=== PATIENT | female | born 2000 | race Caucasian/White ===

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

== ENCOUNTER 2021-07-01 11:07 | Observation (INO) ==
[2021-07-01] MEDS ORDERED: SODIUM CHLORIDE 0.9% 1,000 ML IV STA (12:14)
[2021-07-01] MEDS ORDERED: PROMETHAZINE 25 MG/1 ML VIAL IM STA (12:15)
[2021-07-01 12:44] LABS: Alanine Aminotransferase 28 U/L (13-56); Albumin 3.5 G/DL (3.4-5.0); Alkaline Phosphatase 98 U/L (45-117); Aspartate Amino Transferase 18 U/L (0-37); Bilirubin,Total < 0.39 MG/DL (0.20-1.00); Blood Urea Nitrogen 5 MG/DL (7-18); Calcium 9.6 MG/DL (8.5-10.1); Carbon Dioxide 20 MMOL/L (21-32); Estimated Glom Filtration Rate 138 ML/MIN; Glucose 92 MG/DL (74-106); Osmolality,Calculated 266.1 MOS/KG (273-304); Potassium 3.7 MMOL/L (3.5-5.1); Sodium 135 MMOL/L (136-145); Total Protein 7.8 G/DL (6.4-8.2)
[2021-07-01 12:58] LABS: Bilirubin,Urine Negative (Negative); Blood, Urine Negative (Negative); Glucose,Urine (UA) Negative (Negative); Ketones,Urine 80 mg/dL (Negative); Mucus,Urine Many /LPF (Occasional); Nitrite,Urine Negative (Negative); Protein,Urine 100 MG/DL; RBC,Urine 2 /HPF (0-4); Squamous Epithelial Cell,Urine Occasional /HPF (0-10); Urine Appearance CLEAR (Clear); Urine Color Amber (Yellow)
[2021-07-01] MEDS ORDERED: LACTATED RINGERS 250 ML IV ONE (16:27)
[2021-07-01] MEDS ORDERED: PROMETHAZINE 25 MG/1 ML VIAL IM PRN (16:27)
[2021-07-01] MEDS ORDERED: LACTATED RINGERS 500 ML IV PRN (16:27)
[2021-07-01] MEDS ORDERED: LACTATED RINGERS 1,000 ML IV SCH (16:27)
[2021-07-01] MEDS ORDERED: SCOPOLAMINE 1.5 MG PATCH TRANSDERM SCH (16:45)
[2021-07-01] MEDS ORDERED: ALUMINUM/MAGNES/SIMETH MAX STR 30 ML UDCUP PO PRN (17:29)
[2021-07-01] MEDS: LACTATED RINGERS 1,000 ML IV SCH (23:04)
[2021-07-02 05:37] LABS: Basophils % 0.6 % (0.0-0.8); Eosinophils # 0.1 10*3/uL (0.0-0.87); Eosinophils % 0.8 % (0.00-10.9); Hematocrit 34.7 VOL% (35.7-47.0); Hemoglobin 11.9 GM/DL (12.0-16.0); Immature Granulocytes % 0.2 %; Immature Granulocytes Absolute 0.01 #; Lymphocytes # 1.6 10*3/uL (1.4-4.0); Lymphocytes % 25.4 % (21.3-54.2); Mean Corpuscular HGB Conc 34.3 GM/DL (32-36); Mean Corpuscular Volume 87.6 FL (87-102); Mean Platelet Volume 10.4 FL (9.6-12.0); Monocytes % 8.2 % (1.7-12.7); Neutrophils % 64.8 % (38.7-73.9); Platelet Count 202 T/CUMM (130-400); Red Blood Count 3.96 MC/CUMM (3.8-5.5); Red Cell Distribution Width 12.4 % (9.3-17.3); White Blood Count 6.4 T/CUMM (4-12)
[2021-07-02] MEDS: ONDANSETRON 4 MG/2 ML VIAL IV PRN ×3 (05:53→20:38)
[2021-07-02 06:07] LABS: Albumin 2.5 G/DL (3.4-5.0); Bilirubin,Total 0.4 MG/DL (0.20-1.00); Calcium 8.4 MG/DL (8.5-10.1); Osmolality,Calculated 268.8 MOS/KG (273-304); Potassium 3.5 MMOL/L (3.5-5.1); Total Protein 5.9 G/DL (6.4-8.2)
[2021-07-02] MEDS: LACTATED RINGERS 1,000 ML IV SCH ×3 (07:22→23:31)
[2021-07-03] MEDS: LACTATED RINGERS 1,000 ML IV SCH (07:58)
[2021-07-03 08:07] VITALS: BP 101/54
== END 2021-07-03 10:55 | disposition home or self-care (01) ==
LOC: N.EDINP 11:07 → N.ED 11:07 → N.EDINP 16:10 → N.OB 16:15
PROVIDERS: ADMIT Obstetrics & Gynecology; ATTEND Obstetrics & Gynecology

== ENCOUNTER 2021-07-31 10:07 | Inpatient (IN) ==
[2021-07-31] MEDS ORDERED: LACTATED RINGERS 1,000 ML IV ONE (10:45)
[2021-07-31] MEDS: ALUMINUM/MAGNES/SIMETH MAX STR 30 ML UDCUP PO PRN ×2 (11:29→15:38)
[2021-07-31] MEDS: PROMETHAZINE 25 MG/1 ML VIAL IM PRN ×2 (11:29→19:32)
[2021-07-31 11:44] LABS: Basophils % 0.3 % (0.0-0.8); Hematocrit 43.3 VOL% (35.7-47.0); Hemoglobin 14.7 GM/DL (12.0-16.0); Immature Granulocytes % 0.5 %; Immature Granulocytes Absolute 0.05 #; Lymphocytes # 1.4 10*3/uL (1.4-4.0); Lymphocytes % 13.6 % (21.3-54.2); Mean Corpuscular HGB Conc 33.9 GM/DL (32-36); Mean Corpuscular Volume 86.4 FL (87-102); Mean Platelet Volume 10.8 FL (9.6-12.0); Monocytes % 8.2 % (1.7-12.7); Neutrophils % 77.4 % (38.7-73.9); Platelet Count 310 T/CUMM (130-400); Red Blood Count 5.01 MC/CUMM (3.8-5.5); Red Cell Distribution Width 12.4 % (9.3-17.3); White Blood Count 10.1 T/CUMM (4-12)
[2021-07-31 12:08] LABS: Albumin 3.3 G/DL (3.4-5.0); Bilirubin,Total 0.7 MG/DL (0.20-1.00); Calcium 9.6 MG/DL (8.5-10.1); Potassium 3.1 MMOL/L (3.5-5.1); Total Protein 7.6 G/DL (6.4-8.2)
[2021-07-31 13:54] LABS: Bacteria,Urine Occasional /HPF (Few); Blood, Urine Negative (Negative); Glucose,Urine (UA) 50 mg/dL (Negative); Ketones,Urine 80 mg/dL (Negative); Mucus,Urine Many /LPF (Occasional); Nitrite,Urine Negative (Negative); Protein,Urine 100 MG/DL; Squamous Epithelial Cell,Urine Few /HPF (0-10); Urine Appearance Slightly Hazy (Clear); Urine Color Amber (Yellow)
[2021-07-31 13:55] LABS: Bilirubin,Urine Small mg/dL (Negative)
[2021-07-31] MEDS: LACTATED RINGERS 1,000 ML IV SCH (14:26)
[2021-07-31] MEDS: POTASSIUM CHLORIDE INJ 20 MEQ in LACTATED RINGERS 1,000 ML IV SCH ×2 (15:12→23:03)
[2021-07-31] MEDS: PANTOPRAZOLE 40 MG TABLET PO SCH (15:38)
[2021-07-31] MEDS: ONDANSETRON 4 MG/2 ML VIAL IV PRN (16:36)
[2021-08-01] MEDS: POTASSIUM CHLORIDE INJ 20 MEQ in LACTATED RINGERS 1,000 ML IV SCH ×4 (05:17→23:33)
[2021-08-01] MEDS: PANTOPRAZOLE 40 MG TABLET PO SCH (08:18)
[2021-08-01] MEDS: ONDANSETRON 4 MG/2 ML VIAL IV PRN ×2 (08:18→17:54)
[2021-08-01] MEDS: PROMETHAZINE 25 MG/1 ML VIAL IM PRN (11:24)
[2021-08-01] MEDS ORDERED: MORPHINE 2 MG/1 ML SYRINGE IV PRN ×2 (13:19)
[2021-08-01] MEDS: PIPERACILLIN/TAZOBACTAM 3,375 MG in SODIUM CHLORIDE 0.9% 100 ML IV SCH ×2 (13:37→21:33)
[2021-08-01] MEDS ORDERED: DOXYLAMINE SUCCINATE 25 MG PO SCH (19:00)
[2021-08-01] MEDS: ALBUTEROL 2.5 MG/3 ML NEB RESP TX SCH (20:08)
[2021-08-01] MEDS ORDERED: NON-FORMULARY MEDICATION (Fluticasone Propion-Salmeterol [Advair Hfa] 115-21 mcg/actuation INH SCH (21:00)
[2021-08-01] MEDS: ursodioL 300 MG CAPSULE PO SCH (21:33)
[2021-08-02] MEDS: ALBUTEROL 2.5 MG/3 ML NEB RESP TX SCH ×4 (00:32→20:10)
[2021-08-02] MEDS: ONDANSETRON 4 MG/2 ML VIAL IV PRN ×3 (04:33→22:15)
[2021-08-02] MEDS: PIPERACILLIN/TAZOBACTAM 3,375 MG in SODIUM CHLORIDE 0.9% 100 ML IV SCH ×3 (05:21→22:16)
[2021-08-02 07:49] LABS: Basophils % 0.6 % (0.0-0.8); Eosinophils % 0.2 % (0.00-10.9); Hematocrit 35.6 VOL% (35.7-47.0); Immature Granulocytes % 0.5 %; Immature Granulocytes Absolute 0.03 #; Lymphocytes # 1.5 10*3/uL (1.4-4.0); Mean Corpuscular HGB Conc 34.6 GM/DL (32-36); Mean Corpuscular Volume 86.8 FL (87-102); Mean Platelet Volume 10.8 FL (9.6-12.0); Neutrophils % 66.7 % (38.7-73.9); Red Cell Distribution Width 12.3 % (9.3-17.3)
[2021-08-02 08:03] LABS: Hemoglobin 12.3 GM/DL (12.0-16.0); Platelet Count 239 T/CUMM (130-400); White Blood Count 6.7 T/CUMM (4-12)
[2021-08-02 08:10] LABS: Albumin 2.4 G/DL (3.4-5.0); Bilirubin,Total 1.3 MG/DL (0.20-1.00); Calcium 8.2 MG/DL (8.5-10.1); Osmolality,Calculated 258.5 MOS/KG (273-304); Potassium 3.7 MMOL/L (3.5-5.1); Total Protein 5.8 G/DL (6.4-8.2)
[2021-08-02] MEDS: PANTOPRAZOLE 40 MG TABLET PO SCH (08:19)
[2021-08-02] MEDS: ursodioL 300 MG CAPSULE PO SCH ×2 (08:19→21:11)
[2021-08-02] MEDS: POTASSIUM CHLORIDE INJ 20 MEQ in LACTATED RINGERS 1,000 ML IV SCH (12:21)
[2021-08-03] MEDS: ALBUTEROL 2.5 MG/3 ML NEB RESP TX SCH ×4 (00:13→20:35)
[2021-08-03] MEDS: ONDANSETRON 4 MG/2 ML VIAL IV PRN ×3 (06:07→20:21)
[2021-08-03] MEDS: PIPERACILLIN/TAZOBACTAM 3,375 MG in SODIUM CHLORIDE 0.9% 100 ML IV SCH ×3 (06:08→21:25)
[2021-08-03] MEDS: ursodioL 300 MG CAPSULE PO SCH ×2 (08:31→21:21)
[2021-08-03] MEDS: PANTOPRAZOLE 40 MG TABLET PO SCH (08:31)
[2021-08-03] MEDS: PROMETHAZINE 25 MG/1 ML VIAL IM PRN (12:20)
[2021-08-03] MEDS: POTASSIUM CHLORIDE INJ 20 MEQ in LACTATED RINGERS 1,000 ML IV SCH (12:20)
[2021-08-04] MEDS: ALBUTEROL 2.5 MG/3 ML NEB RESP TX SCH ×5 (01:45→21:46)
[2021-08-04] MEDS: ONDANSETRON 4 MG/2 ML VIAL IV PRN ×3 (04:00→19:52)
[2021-08-04 04:32] LABS: Basophils % 0.4 % (0.0-0.8); Eosinophils % 0.4 % (0.00-10.9); Hematocrit 36.3 VOL% (35.7-47.0); Hemoglobin 12.4 GM/DL (12.0-16.0); Immature Granulocytes % 0.4 %; Immature Granulocytes Absolute 0.03 #; Lymphocytes # 1.7 10*3/uL (1.4-4.0); Mean Corpuscular HGB Conc 34.2 GM/DL (32-36); Mean Corpuscular Volume 88.3 FL (87-102); Mean Platelet Volume 11.1 FL (9.6-12.0); Monocytes % 9.9 % (1.7-12.7); Neutrophils % 65.9 % (38.7-73.9); Platelet Count 218 T/CUMM (130-400); Red Blood Count 4.11 MC/CUMM (3.8-5.5); Red Cell Distribution Width 12.6 % (9.3-17.3); White Blood Count 7.3 T/CUMM (4-12)
[2021-08-04 04:56] LABS: Albumin 2.4 G/DL (3.4-5.0); Bilirubin,Total 0.7 MG/DL (0.20-1.00); Calcium 8.8 MG/DL (8.5-10.1); Osmolality,Calculated 263.2 MOS/KG (273-304); Potassium 3.9 MMOL/L (3.5-5.1); Total Protein 5.9 G/DL (6.4-8.2)
[2021-08-04] MEDS: PIPERACILLIN/TAZOBACTAM 3,375 MG in SODIUM CHLORIDE 0.9% 100 ML IV SCH (05:13)
[2021-08-04] MEDS ORDERED: LIDOCAINE 1%/EPI INJ 20 ML VIAL ONE (06:09)
[2021-08-04] MEDS ORDERED: TISSUE ADHESIVE 1 EACH APPLICATOR TOP ONE (06:09)
[2021-08-04] MEDS ORDERED: BUPIVACAINE MPF 0.25% 30 ML VIAL ONE (06:09)
[2021-08-04] MEDS ORDERED: fentaNYL 100 MCG/2 ML VIAL ONE ×2 (06:42→08:15)
[2021-08-04] MEDS ORDERED: ROCURONIUM 50 MG/5 ML VIAL IV ONE (06:43)
[2021-08-04] MEDS ORDERED: LIDOCAINE 2% 5 ML VIAL ONE (06:43)
[2021-08-04] MEDS ORDERED: DEXAMETHASONE 4 MG/1 ML VIAL ONE (06:43)
[2021-08-04] MEDS ORDERED: ONDANSETRON 4 MG/2 ML VIAL ONE (06:43)
[2021-08-04] MEDS ORDERED: propofoL 200 MG/20 ML VIAL IV ONE (06:43)
[2021-08-04] MEDS ORDERED: SUCCINYLCHOLINE 200 MG/10 ML VIAL ONE (06:43)
[2021-08-04] MEDS ORDERED: SEVOFLURANE 1 UNIT/15 MINUTE INH ONE (08:09)
[2021-08-04] MEDS: HYDROmorphone 2 MG/1 ML VIAL IV PRN ×4 (08:40→08:55)
[2021-08-04] MEDS ORDERED: HYDROmorphone 2 MG/1 ML VIAL ONE (08:40)
[2021-08-04] MEDS ORDERED: ONDANSETRON 4 MG/2 ML VIAL IV PRN (08:54)
[2021-08-04] MEDS ORDERED: PROMETHAZINE INJ 25 MG in SODIUM CHLORIDE 0.9% 50 ML IV PRN (08:54)
[2021-08-04] MEDS: LACTATED RINGERS 1,000 ML IV SCH ×9 (08:55→22:25)
[2021-08-04] MEDS: POTASSIUM CHLORIDE INJ 20 MEQ in LACTATED RINGERS 1,000 ML IV SCH ×4 (08:58→09:01)
[2021-08-04] MEDS ORDERED: PANTOPRAZOLE 40 MG VIAL IV ONE (13:06)
[2021-08-04] MEDS: PANTOPRAZOLE 40 MG VIAL IV SCH (13:10)
[2021-08-04] MEDS: PANTOPRAZOLE 40 MG TABLET PO SCH (17:53)
[2021-08-04] MEDS: oxyCODONE/ACETAMINOPHEN 5-325 MG TABLET PO PRN (20:54)
[2021-08-05] MEDS: oxyCODONE/ACETAMINOPHEN 5-325 MG TABLET PO PRN ×3 (00:34→16:55)
[2021-08-05] MEDS: ONDANSETRON 4 MG/2 ML VIAL IV PRN (07:49)
[2021-08-05] MEDS: ALBUTEROL 2.5 MG/3 ML NEB RESP TX SCH ×3 (08:32→19:09)
[2021-08-05] MEDS: PANTOPRAZOLE 40 MG VIAL IV SCH (09:07)
[2021-08-05] MEDS ORDERED: ACETAMINOPHEN 500 MG TABLET PO PRN (11:20)
[2021-08-05] MEDS ORDERED: SCOPOLAMINE 1.5 MG PATCH TRANSDERM SCH (12:00)
[2021-08-05] MEDS ORDERED: METOCLOPRAMIDE 10 MG/2 ML VIAL ONE (16:34)
[2021-08-05] MEDS ORDERED: METOCLOPRAMIDE 10 MG/2 ML VIAL IV PRN (16:42)
[2021-08-05] MEDS: ONDANSETRON 4 MG TABLET PO PRN (17:06)
[2021-08-05] MEDS: LACTATED RINGERS 1,000 ML IV SCH (17:40)
[2021-08-05] MEDS: PROMETHAZINE 25 MG/1 ML VIAL IM PRN (19:51)
[2021-08-06] MEDS: ALBUTEROL 2.5 MG/3 ML NEB RESP TX SCH ×2 (00:10→07:45)
[2021-08-06] MEDS: ONDANSETRON 4 MG TABLET PO PRN ×2 (00:24→09:41)
[2021-08-06] MEDS: PROMETHAZINE 25 MG/1 ML VIAL IM PRN ×2 (03:51→12:50)
[2021-08-06 08:04] VITALS: BP 124/55
[2021-08-06] MEDS ORDERED: MAGNESIUM HYDROXIDE SUSP 30 ML UDCUP PO PRN (08:26)
[2021-08-06] MEDS: PANTOPRAZOLE 40 MG VIAL IV SCH (08:36)
[2021-08-06] MEDS ORDERED: DOCUSATE SODIUM 100 MG CAPSULE PO SCH (09:00)
[2021-08-06] MEDS ORDERED: METOCLOPRAMIDE 10 MG/2 ML VIAL IV SCH (09:30)
[2021-08-06] MEDS: LACTATED RINGERS 1,000 ML IV SCH (11:47)
== END 2021-08-06 13:45 | disposition home or self-care (01) | DRG 419 ==
LOC: N.OB
PROVIDERS: ADMIT Obstetrics & Gynecology; ATTEND Obstetrics & Gynecology
PROC: LAPCHOL (2021-08-04 07:20)

== ENCOUNTER 2021-08-09 09:12 | Observation (INO) ==
[2021-08-09] MEDS ORDERED: SODIUM CHLORIDE 0.9% 2,000 ML IV STA (09:31)
[2021-08-09] MEDS ORDERED: ONDANSETRON 4 MG/2 ML VIAL IV STA (09:31)
[2021-08-09 10:18] LABS: Basophils % 0.1 % (0.0-0.8); Hematocrit 41.3 VOL% (35.7-47.0); Hemoglobin 14.2 GM/DL (12.0-16.0); Immature Granulocytes % 0.4 %; Immature Granulocytes Absolute 0.03 #; Lymphocytes # 1.4 10*3/uL (1.4-4.0); Lymphocytes % 16.5 % (21.3-54.2); Mean Corpuscular HGB Conc 34.4 GM/DL (32-36); Mean Corpuscular Volume 84.8 FL (87-102); Mean Platelet Volume 10.5 FL (9.6-12.0); Monocytes % 9.1 % (1.7-12.7); Neutrophils % 73.9 % (38.7-73.9); Platelet Count 281 T/CUMM (130-400); Red Blood Count 4.87 MC/CUMM (3.8-5.5); Red Cell Distribution Width 12.6 % (9.3-17.3); White Blood Count 8.5 T/CUMM (4-12)
[2021-08-09 10:39] LABS: Albumin 2.8 G/DL (3.4-5.0); Bilirubin,Total 0.4 MG/DL (0.20-1.00); Calcium 8.9 MG/DL (8.5-10.1); Osmolality,Calculated 263.2 MOS/KG (273-304); Potassium 3.5 MMOL/L (3.5-5.1); Total Protein 7.1 G/DL (6.4-8.2)
[2021-08-09 11:08] LABS: Amorphous Crystals,Urine Few /HPF (Few); Bilirubin,Urine Negative (Negative); Blood, Urine Negative (Negative); Calcium Oxalate Crystals,Urine Occasional /HPF (Few); Glucose,Urine (UA) 50 mg/dL (Negative); Ketones,Urine 5 mg/dL (Negative); Mucus,Urine Many /LPF (Occasional); Nitrite,Urine Negative (Negative); Protein,Urine Negative; Urine Appearance Slightly Hazy (Clear); Urine Color Yellow (Yellow); Urine Urobilinogen < 2.0 EU/DL (0.2-1.0)
[2021-08-09] MEDS: ALUMINUM/MAGNES/SIMETH MAX STR 30 ML UDCUP PO PRN ×3 (11:10→22:08)
[2021-08-09] MEDS ORDERED: PROMETHAZINE 25 MG/1 ML VIAL IM STA (13:16)
[2021-08-09] MEDS ORDERED: BISACODYL 10 MG SUPP RECTAL PRN (13:46)
[2021-08-09] MEDS ORDERED: ACETAMINOPHEN 325 MG TABLET PO PRN (13:46)
[2021-08-09] MEDS ORDERED: ONDANSETRON 4 MG/2 ML VIAL IV PRN (13:46)
[2021-08-09] MEDS ORDERED: MAGNESIUM HYDROXIDE SUSP 30 ML UDCUP PO PRN (13:46)
[2021-08-09] MEDS ORDERED: LACTATED RINGERS 1,000 ML IV SCH (14:00)
[2021-08-09] MEDS: DEXTROSE 5% LACTATED RINGERS 1,000 ML IV SCH (17:49)
[2021-08-09] MEDS ORDERED: INFLUENZA VIRUS VACCINE 0.5 ML SYRINGE IM ONE (17:55)
[2021-08-09] MEDS: ONDANSETRON 4 MG/2 ML VIAL IV PRN (18:50)
[2021-08-09] MEDS: PROMETHAZINE 25 MG/1 ML VIAL IM PRN (20:16)
[2021-08-09] MEDS ORDERED: SCOPOLAMINE 1.5 MG PATCH TRANSDERM SCH (21:00)
[2021-08-09] MEDS: PANTOPRAZOLE 40 MG VIAL IV SCH (21:21)
[2021-08-09] MEDS: DOCUSATE SODIUM 100 MG CAPSULE PO SCH (21:23)
[2021-08-10] MEDS: ONDANSETRON 4 MG/2 ML VIAL IV PRN ×3 (00:40→15:32)
[2021-08-10] MEDS: DEXTROSE 5% LACTATED RINGERS 1,000 ML IV SCH ×2 (00:41→09:28)
[2021-08-10] MEDS: PROMETHAZINE 25 MG/1 ML VIAL IM PRN (03:38)
[2021-08-10] MEDS: ALUMINUM/MAGNES/SIMETH MAX STR 30 ML UDCUP PO PRN ×2 (04:31→08:26)
[2021-08-10 05:25] LABS: Basophils % 0.3 % (0.0-0.8); Eosinophils % 0.1 % (0.00-10.9); Hematocrit 36.9 VOL% (35.7-47.0); Hemoglobin 12.5 GM/DL (12.0-16.0); Immature Granulocytes % 0.4 %; Immature Granulocytes Absolute 0.03 #; Lymphocytes # 1.2 10*3/uL (1.4-4.0); Lymphocytes % 15.8 % (21.3-54.2); Mean Corpuscular HGB Conc 33.9 GM/DL (32-36); Mean Corpuscular Volume 87.6 FL (87-102); Mean Platelet Volume 10.7 FL (9.6-12.0); Monocytes % 9.4 % (1.7-12.7); Platelet Count 252 T/CUMM (130-400); Red Blood Count 4.21 MC/CUMM (3.8-5.5); Red Cell Distribution Width 12.7 % (9.3-17.3); White Blood Count 7.9 T/CUMM (4-12)
[2021-08-10 05:43] LABS: Calcium 8.6 MG/DL (8.5-10.1); Osmolality,Calculated 273.5 MOS/KG (273-304); Potassium 3.2 MMOL/L (3.5-5.1)
[2021-08-10] MEDS: FAMOTIDINE 20 MG/2 ML VIAL IV SCH ×2 (08:29→20:52)
[2021-08-10] MEDS ORDERED: methylPREDNISolone SOD SUC 125 MG/2 ML VIAL IV ONE (08:30)
[2021-08-10] MEDS: DOCUSATE SODIUM 100 MG CAPSULE PO SCH ×2 (09:36→21:07)
[2021-08-10] MEDS: PYRIDOXINE 50 MG TABLET PO SCH ×3 (10:28→20:53)
[2021-08-10] MEDS: MULTIVITAMIN INJ 10 ML in DEXTROSE 5% NACL 0.45% 1,000 ML IV SCH (10:29)
[2021-08-10] MEDS: POTASSIUM CHLORIDE RIDER 10 MEQ/100 ML PREMIX IV PRN ×4 (10:30→13:47)
[2021-08-10] MEDS ORDERED: FLUCONAZOLE 150 MG TABLET PO ONE (10:32)
[2021-08-10] MEDS: DOXYLAMINE 25 MG PO SCH ×3 (10:35→20:55)
[2021-08-10] MEDS: METOCLOPRAMIDE 10 MG/2 ML VIAL IV PRN ×2 (11:48→18:15)
[2021-08-10] MEDS: PANTOPRAZOLE 40 MG VIAL IV SCH ×2 (13:49→21:03)
[2021-08-11] MEDS: ONDANSETRON 4 MG/2 ML VIAL IV PRN ×2 (00:44→12:11)
[2021-08-11] MEDS: POTASSIUM CHLORIDE 20 MEQ TABLET PO PRN ×4 (01:04→12:02)
[2021-08-11] MEDS: DOXYLAMINE 25 MG PO SCH (08:30)
[2021-08-11] MEDS: PYRIDOXINE 50 MG TABLET PO SCH (08:31)
[2021-08-11] MEDS: FAMOTIDINE 20 MG/2 ML VIAL IV SCH (08:36)
[2021-08-11] MEDS: DEXTROSE 5% LACTATED RINGERS 1,000 ML IV SCH ×3 (09:23→09:24)
[2021-08-11] MEDS: MULTIVITAMIN INJ 10 ML in DEXTROSE 5% NACL 0.45% 1,000 ML IV SCH (09:46)
[2021-08-11] MEDS ORDERED: ZINC OXIDE 16% PASTE 57 GM TUBE TOP PRN (09:59)
[2021-08-11] MEDS ORDERED: ALBUTEROL 1.25 MG/3 ML NEB RESP TX STA (10:42)
[2021-08-11] MEDS ORDERED: ALBUTEROL 2.5 MG/3 ML NEB RESP TX STA (10:43)
[2021-08-11 12:54] VITALS: BP 120/79
[2021-08-11] MEDS ORDERED: ALBUTEROL 2.5 MG/3 ML NEB RESP TX PRN (15:00)
== END 2021-08-11 12:45 | disposition home or self-care (01) ==
LOC: N.ED 09:12 → N.EDINP 09:12 → N.OB 16:40
PROVIDERS: ADMIT Obstetrics & Gynecology; ATTEND Obstetrics & Gynecology

== ENCOUNTER 2021-11-18 19:49 | Inpatient (IN) ==
[2021-11-18 20:29] LABS: Bacteria,Urine Occasional /HPF (Few); Bilirubin,Urine Negative (Negative); Blood, Urine Negative (Negative); Calcium Oxalate Crystals,Urine Occasional /HPF (Few); Glucose,Urine (UA) Negative (Negative); Ketones,Urine Negative (Negative); Nitrite,Urine Negative (Negative); Protein,Urine Negative; RBC,Urine 9 /HPF (0-4); Squamous Epithelial Cell,Urine Occasional /HPF (0-10); Urine Appearance CLEAR (Clear); Urine Color Yellow (Yellow); Urine Specific Gravity 1.014 (1.001-1.035); Urine Urobilinogen < 2.0 EU/DL (<2.0)
[2021-11-18 20:30] LABS: Mucus,Urine Many /LPF (Occasional)
[2021-11-18] MEDS ORDERED: ACETAMINOPHEN 500 MG TABLET PO ONE (21:15)
[2021-11-18] MEDS ORDERED: TERBUTALINE 1 MG/1 ML VIAL SUBCUT ONE (21:31)
[2021-11-18] MEDS ORDERED: MEPERIDINE 50 MG/1 ML VIAL IV ONE (21:34)
[2021-11-18] MEDS ORDERED: ONDANSETRON 4 MG/2 ML VIAL IV ONE (21:37)
[2021-11-18] MEDS ORDERED: LACTATED RINGERS 1,000 ML IV SCH (22:30)
[2021-11-18] MEDS: MAGNESIUM SULF DRIP 40 GM/1,000 ML ML IV SCH (22:40)
[2021-11-18] MEDS: BETAMETH SODIUM PHOS/ACETATE 30 MG/5 ML VIAL IM SCH (22:40)
[2021-11-18] MEDS: LACTATED RINGERS 1,000 ML IV SCH (22:41)
[2021-11-18 23:01] LABS: Basophils # 0.1 10*3/uL (0.0-0.2); Basophils % 0.3 % (0.0-0.8); Eosinophils # 0.1 10*3/uL (0.0-0.87); Eosinophils % 0.5 % (0.00-10.9); Hematocrit 29.8 VOL% (35.7-47.0); Hemoglobin 9.6 GM/DL (12.0-16.0); Immature Granulocytes % 0.8 %; Immature Granulocytes Absolute 0.11 #; Lymphocytes # 2.5 10*3/uL (1.4-4.0); Lymphocytes % 17.2 % (21.3-54.2); Mean Corpuscular HGB Conc 32.2 GM/DL (32-36); Mean Corpuscular Volume 82.1 FL (87-102); Mean Platelet Volume 10.6 FL (9.6-12.0); Monocytes % 7.8 % (1.7-12.7); Neutrophils % 73.4 % (38.7-73.9); Platelet Count 225 T/CUMM (130-400); Red Blood Count 3.63 MC/CUMM (3.8-5.5); Red Cell Distribution Width 12.7 % (9.3-17.3); White Blood Count 14.6 T/CUMM (4-12)
[2021-11-18] MEDS: CLINDAMYCIN INJ 900 MG/50 ML PREMIX IV SCH (23:05)
[2021-11-18 23:10] LABS: Barbiturates Screen,Urine Negative (Negative); Benzodiazepines Screen,Urine Negative (Negative); Cannabinoid Screen,Urine Negative (Negative); Opiate Screen,Urine Negative (Negative); Phencyclidine Screen,Urine Negative (Negative)
[2021-11-18 23:21] LABS: Alanine Aminotransferase 9 U/L (13-56); Albumin 2.3 G/DL (3.4-5.0); Alkaline Phosphatase 134 U/L (45-117); Aspartate Amino Transferase 10 U/L (0-37); Bilirubin,Total < 0.39 MG/DL (0.20-1.00); Blood Urea Nitrogen 4 MG/DL (7-18); Calcium 8.3 MG/DL (8.5-10.1); Carbon Dioxide 21 MMOL/L (21-32); Estimated Glom Filtration Rate 148 ML/MIN; Glucose 84 MG/DL (74-106); Osmolality,Calculated 272.5 MOS/KG (273-304); Potassium 3.2 MMOL/L (3.5-5.1); Sodium 139 MMOL/L (136-145); Total Protein 6.1 G/DL (6.4-8.2)
[2021-11-19] MEDS ORDERED: MEPERIDINE 50 MG/1 ML VIAL IV ONE (05:01)
[2021-11-19] MEDS: ONDANSETRON 4 MG/2 ML VIAL IV PRN (05:25)
[2021-11-19] MEDS: CLINDAMYCIN INJ 900 MG/50 ML PREMIX IV SCH ×2 (07:34→15:24)
[2021-11-19] MEDS: BETAMETH SODIUM PHOS/ACETATE 30 MG/5 ML VIAL IM SCH (10:32)
[2021-11-19] MEDS ORDERED: SIMETHICONE CHEW 125 MG TABLET PO PRN (13:54)
[2021-11-19] MEDS: ALUMINUM/MAGNES/SIMETH MAX STR 30 ML UDCUP PO PRN (14:40)
[2021-11-19] MEDS: MAGNESIUM SULF DRIP 40 GM/1,000 ML ML IV SCH (15:29)
[2021-11-19] MEDS: LACTATED RINGERS 1,000 ML IV SCH (18:46)
[2021-11-19] MEDS ORDERED: ACETAMINOPHEN 500 MG TABLET PO ONE (23:44)
[2021-11-20] MEDS: ONDANSETRON 4 MG/2 ML VIAL IV PRN (03:24)
[2021-11-20] MEDS: CLINDAMYCIN INJ 900 MG/50 ML PREMIX IV SCH ×3 (06:53→15:16)
[2021-11-20] MEDS: NIFEdipine 10 MG CAPSULE PO SCH ×2 (09:10→15:15)
[2021-11-20] MEDS: ALUMINUM/MAGNES/SIMETH MAX STR 30 ML UDCUP PO PRN (21:39)
[2021-11-21] MEDS: NIFEdipine 10 MG CAPSULE PO SCH ×2 (05:01→08:24)
== END 2021-11-21 08:30 | disposition home or self-care (01) | DRG 833 ==
LOC: N.LDOUT 19:49 → N.LD 19:51
PROVIDERS: ADMIT Obstetrics & Gynecology; ATTEND Obstetrics & Gynecology